=== PATIENT | female | born 1985 | race Caucasian/White ===

== ENCOUNTER 2023-06-11 07:29 | Outpatient (CLI) | payer BC, SELFPAY ==
--- NOTE | ~2023-06-11 | MM_ITS ---
EXAMINATION: MM scrn wiliam implant BI w nery HISTORY: Screening mammogram TECHNIQUE: Craniocaudal and mediolateral oblique 3-D tomosynthesis images with implant displacement a nd synthetic 2-D images were generated. Craniocaudal and mediolateral oblique views of the breasts wi thout implant displacement were obtained using full field digital mammography. CAD analysis was submi tted and interpreted. COMPARISON: No prior mammogram is available for comparison at this institution. BREAST PARENCHYMAL COMPOSITION: The breasts are heterogeneously dense, which may obscure small masses . FINDINGS: Status post bilateral augmentation mammoplasty. There is no evidence of suspicious mass, ca lcification, or architectural distortion to suggest malignancy in either breast.. IMPRESSION: 1. No mammographic evidence of malignancy. 2. Recommend routine screening mammography in one year. BI-RADS Category 1: Negative Reviewed, dictated and finalized at location A.
== END 2023-06-11 07:30 | disposition home or self-care (01) ==
LOC: CHSIMG 07:33
PROVIDERS: PCP Family Medicine; Visit Provider Student in an Organized Health Care Education/Training Program
DX: Z12.31 Encounter for screening mammogram for malignant neoplasm of breast (principal)
CPT/HCPCS: 77063; 77067

== ENCOUNTER 2024-07-31 07:16 | Outpatient (CLI) | payer OTHER, SELFPAY ==
--- NOTE | ~2024-07-31 | MM_ITS ---
EXAMINATION: MM scrn wiliam implant BI w nery HISTORY: Screening mammogram TECHNIQUE: Craniocaudal and mediolateral oblique 3-D tomosynthesis images with implant displacement a nd synthetic 2-D images were generated. Craniocaudal and mediolateral oblique views of the breasts wi thout implant displacement were obtained using full field digital mammography. CAD analysis was submi tted and interpreted. COMPARISON: 06/11/2023 BREAST PARENCHYMAL COMPOSITION: Dense: The breasts are heterogeneously dense, which may obscure small masses FINDINGS: There is no evidence of suspicious mass, calcification, or architectural distortion to sugg est malignancy in either breast. There has been no suspicious interval change. IMPRESSION: 1. No mammographic evidence of malignancy. 2. Recommend routine screening mammography in one year. BI-RADS Category 1: Negative Reviewed, dictated and finalized at location A.
--- OUTSIDE RECORDS SUMMARY | 2024-07-31 07:19 | XMS_ITS | Encounter Summary ---
Author Organization [facility] Healthcare Address [address] [place] [address] Care Team Providers Care Sound Mixer Name Role Phone No, Physician Primary Care Provider Jerome Chow MD Primary Care Provider [phone]- [phone] Encounter Details Date Type Department Care Team (Late st Contact Info) Description 09/06/2017 Social Work [facility] [place] [address] Nidhi Danilele LCSW Social History Tobacco Use Types Packs/Day Years Used Date Smoking Tobacco: Never Assessed Comments Yes Sex and Gender Information Value Date Recorded Sex Assigned at Not on file Legal Sex Female 3:04 PM CDT Gender Identity Not on file Sexual Orientation Not on file documented as of this encounter Plan of Treatment Not on file documented as of this encounter Visit Diagnoses Not on filedocumented in this encounter Care Teams Sound Mixer Relationship Specialty Start Date End Date No, Physician PCP - General 09/01/17 11/09/18 Jerome Chow MD [address] [place] [address] [place] [address] PCP - General Family Medicine 11/10/18 documented as of this encounter
--- OUTSIDE RECORDS SUMMARY | 2024-07-31 07:19 | XMS_ITS | Clinical Summary ---
Author Organization [facility] Address [address] [place] [address] Care Team Providers Care Licensing Director Name Role Phone Jerome Chow MD Primary Care Provider [phone]- [phone] Allergies Active Allergy Reactions Criticality Noted Date Comments Sulfa (Sulfonamide Antibiotics) Other (See comments) Low 09/03/2017 unknown Medications prenat.vits,kieran ,ncs-khdt-cvgvj ( VITAMIN) tablet Take 1 tablet by mouth daily. 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 [x] Full MFM Care; Referring Provider: Jerome Chow (primary OB) [facility] [x] Labs: Rh [O+ ], Ab [Neg ], Rubella [Immune ], HIV [Negative ], HepBSAg [Negative ], RPR [Negative ], GC/CT [Negative] [x] Genetic Screening: Quad 1:127, high risk for NIPT T21 [x] CBC/Hgb electrophoresis (if indicated) - H&H: 13.5/40 [x] UCx: 02/16/17 - no growth [x] Pap: 2013- For PAP 2nd Tri Labs: [x] Anatomy ultrasound: complete, mid-trimester anatomy scan absent nasal bone [x] echo- did not demonstrate a VSD. 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 Some images suggested the possibility of a small primum ASD Surgical History Surgery Date Site/Laterality Comments BREAST SURGERY 02/15/2007 - 02/15/2008 TONSILLECTOMY 02/15/2007 - 02/15/2008 TYMPANOSTOMY TUBE PLACEMENT childhood Medical History Medical History Date Comments History of gestational diabetes 2014 History of kidney stones Family History Medical History Relation Name Comments Endometriosis Mother Relation Name Status Comments Mother Social History Tobacco Use Types Packs/Day Years Used Date Smoking Tobacco: Never Smokeless Tobacco: Never Alcohol Use Standard Drinks/Week Comments No 0 (1 standard drink = 0.6 oz pur e alcohol) Comments No Sex and Gender Information Value Date Recorded Sex Assigned at Not on file Legal Sex Female 3:04 PM CDT Gender Identity Not on file Sexual Orientation Not on file Obstetrics History Para Term AB IAB SAB Ectopic Multiple Livin g Live Births 3 3 3 0 3 3 Date Outcome GA Total Labor Labor/2nd/3rd Weight Sex Type Anes PTL Tamy A1 A5 Name Clin 2012 Term 38w 5d 2.807 kg (6 lb 3 oz) F Vag-S pont N Livin g Complications:Gestational di abetes 2013 Term 38w 5d 3.799 kg (8 lb 6 oz) M Vag-S pont N Livin g Complications:None,Gestation al diabetes 2017 Term 37w 3d 0h 17m 0h 04m/0h 13m 2.65 kg (5 lb 13.5 oz) M Vag-S pont Epidur al N Livin g 8 9 BRANDIE CAMACHO,PAT YSHEL BY Uriel Mcgowan MD Complications:Down syndrome Delivery Location:[facility] ([facility]LD) Last Filed Vital Signs Vital Sign Reading Time Taken Comments Blood Pressure 132/90 06/20/2022 8:34 AM CDT Pulse 73 06/20/2022 8:34 AM CDT Temperature 36.8 C (98.3 F) 06/20/2022 8:34 AM CDT Respiratory Rate 16 06/20/2022 8:34 AM CDT Oxygen Saturation 100% 06/20/2022 8:34 AM CDT Inhaled Oxygen Concentration - - Weight 74.8 kg (165 lb) 06/20/2022 8:34 AM CDT Height 162.6 cm (5' 4) 06/20/2022 8:34 AM CDT Body Mass Index 28.32 06/20/2022 8:34 AM CDT Plan of Treatment Health Maintenance Due Date Last Done Comments Breast Cancer Screening-Mammogram 1983 Cervical Cancer Screening 1983 Varicella Vaccines (1 of 2 - 13+ 2-dose series) 06/07/1996 Hepatitis B Screening 06/07/2001 Depression Screening 11/05/2018 11/05/2017 Regular Well Visit/Exam 18-64 11/11/2019 11/10/2018 Influenza Vaccine (Season Ended) 2024 11/25/2018, 11/04/2017, 12/04/2016 DTaP/Tdap/Td Vaccine (2 - Td or Tdap) 05/19/2027 05/18/2017 Hepatitis C Screening Completed 02/16/2017 HPV Vaccines Aged Out No longer eligi ble based on patient's age to complete this topic Pneumococcal vaccine <65 Aged Out No longer eligible based on patient's age to complete this topic Procedures Procedure Name Priority Date/Time Associated Diagnosis Comments HEPATITIS C ANTIBODY Routine 02/16/2017 from Last 3 Months or Most Recently Relevant to Health Maintenance Results * Hepatitis C antibody (02/16/2017) SCRIBED HCV ab negative Blood specimen (specimen) Historical Provider LAB MICROBIOLOGY - GENERA L ORDERABLES Final Result from Last 3 Months or Most Recently Relevant to Health Maintenance Insurance Advance Directives For more information, please contact: [phone] * Full Code (Latest Code Status on File) Date Activated Date Inactivated Comments 09/25/2017 2:15 AM 09/26/2017 6:54 PM * Full Code Date Activated Date Inactivated Comments 09/24/2017 11:21 AM 09/25/2017 2:15 AM Full CPR in case of cardiopulmonary arrest Care Teams Licensing Director Relationship Specialty Start Date End Date Jerome Chow MD [address] [place] [address] [place] [address] PCP - General Family Medicine 11/10/18
--- OUTSIDE RECORDS SUMMARY | 2024-07-31 07:19 | XMS_ITS | Encounter Summary ---
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
--- OUTSIDE RECORDS SUMMARY | 2024-07-31 07:19 | XMS_ITS | Clinical Summary ---
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 Gender Identity Not on file Sexual Orientation Not on file Plan of Treatment Health Maintenance Due Date Last Done Comments Cervical Cancer Screening Pa p Smear (Age 30 to 64) Every 3 Years 1983 Annual Physical 06/07/1986 Hepatitis C 06/07/2001 DTaP, Tdap and Td Vaccines ( 1 - Tdap) 06/07/2002 Hepatitis B Vaccines (1 of 3 - 19+ 3-dose series) 06/07/2002 Cervical Cancer Screening Pa p with HPV Testing (Age 30 to 64) Every 5 Years 06/07/2013 Cervical Cancer Screening with HPV 06/07/2013 Mammogram Screening 2023 COVID-19 Vaccine ( - 2023-2 5 season) 2023 HPV Vaccines Aged Out No longer eligi ble based on patient's age to complete this topic Meningococcal B Vaccine Aged Out No l onger eligible based on patient's age to complete this topic Meningococcal Vaccine Aged Out No alma karlie eligible based on patient's age to complete this topic Pneumococcal Vaccine: Pediat rics (0 to 5 Years) and At-Risk Patients (6 to 49 Years) Aged Out No longer eligible b ased on patient's age to complete this topic RSV Immunizations Under 20 Months Aged Out No longer eligible based on patient's age to complete this topic
--- OUTSIDE RECORDS SUMMARY | 2024-07-31 07:19 | XMS_ITS | Referral Summary ---
Author Organization [facility] Address [address] [place] [address] Care Team Providers Care Molding Machine Setter Name Role Phone Jerome Chow MD Primary Care Provider +1- [phone] Allergies Active Allergy Reactions Criticality Noted Date Comments Sulfa (Sulfonamide Antibiotics) Other (See comments) Low 09/03/2017 unknown Medications prenat.vits,kieran ,wnq-nzrf-yfrmk ( VITAMIN) tablet Take 1 tablet by mouth daily. 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 Some images suggested the possibility of a small primum ASD Social History Tobacco Use Types Packs/Day Years Used Date Smoking Tobacco: Never Smokeless Tobacco: Never Alcohol Use Standard Drinks/Week Comments No 0 (1 standard drink = 0.6 oz pur e alcohol) Comments No Sex and Gender Information Value Date Recorded Sex Assigned at Not on file Legal Sex Female 3:04 PM CDT Gender Identity Not on file Sexual Orientation Not on file Last Filed Vital Signs Vital Sign Reading [...] 06/20/2022 8:34 AM CDT Plan of Treatment Not on file Procedures Procedure Name Priority Date/Time Associated Diagnosis Comments HEPATITIS C ANTIBODY Routine 02/16/2017 from Last 3 Months or Most Recently Relevant to Health Maintenance Results * Hepatitis C antibody (02/16/2017) SCRIBED HCV ab negative Blood specimen (specimen) us Historical Provider LAB MICROBIOLOGY - GENERA L ORDERABLES Final Result from Last 3 Months or Most Recently Relevant to Health Maintenance Insurance [facility] HMO/PPO Address: [address] [address] Advance Directives For more information, please contact: [phone] * Full Code (Latest Code Status on File) Date Activated Date Inactivated Comments 09/25/2017 2:15 AM 09/26/2017 6:54 PM * Full Code Date Activated Date Inactivated Comments 09/24/2017 11:21 AM 09/25/2017 2:15 AM Full CPR in case of cardiopulmonary arrest Care Teams Molding Machine Setter Relationship Specialty Start Date End Date Jerome Chow MD [address] [place] [address] [place] [address] PCP - General Family Medicine 11/10/18
== END 2024-07-31 07:17 | disposition home or self-care (01) ==
PROVIDERS: PCP Family Medicine; Visit Provider Student in an Organized Health Care Education/Training Program
DX: Z12.31 Encounter for screening mammogram for malignant neoplasm of breast (principal)
CPT/HCPCS: 77063; 77067